=== PATIENT | female | born 1955 | race African-American/Black ===

== ENCOUNTER 2020-10-17 15:20 | Emergency (ER) | payer MEDICAID ==
[2020-10-17 15:23] VITALS: Ht 152.4 cm
[2020-10-17 18:56] VITALS: BP 103/62
== END 2020-10-17 18:56 | disposition home or self-care (01) ==
LOC: ED 15:20
DX: R05 Cough (principal); I10 Essential (primary) hypertension; R06.02 Shortness of breath; R07.89 Other chest pain; R06.2 Wheezing; Z88.6 Allergy status to analgesic agent; Z20.828 Contact with and (suspected) exposure to other viral communicable diseases
CPT/HCPCS: U0003

== ENCOUNTER 2021-02-04 10:41 | Emergency (ER) | payer MEDICAID ==
[~2021-02-04] VITALS: Ht 154.9 cm; Wt 78.5 kg
[2021-02-04 10:53] VITALS: Ht 154.9 cm; Wt 78.5 kg
[2021-02-04 12:04] LABS: CALCIUM 9.3 mg/dL (8.5-10.1); CARBON DIOXIDE 27.1 mmol/L (21-32); CHLORIDE SERUM 102 mmol/L (98-107); CREATININE SERUM 0.9 mg/dL (0.6-1.0); GFR1 > 60 mL/min; GLUCOSE SERUM 97 mg/dL (74-106); POTASSIUM SERUM 3.7 mmol/L (3.5-5.1); SODIUM SERUM 139 mmol/L (136-145)
[2021-02-04 12:10] LABS: ALBUMIN 3.7 g/dL (3.4-5.0); ALKALINE PHOSPHATASE 111 U/L (46-116); ALT/SGPT 24 U/L (14-59); AST/SGOT 16 U/L (15-37); BILIRUBIN TOTAL 0.48 mg/dL (0.20-1.00); LIPASE 153 IU/L (73-393); TOTAL PROTEIN, SERUM 8.1 g/dL (6.4-8.2)
[2021-02-04 13:01] LABS: BASOPHIL % 0.6 % (0.2-1.3); PLATELET COUNT 261 x10^3mcL (179-408)
[2021-02-04 13:02] LABS: RED CELL DISTRIBUTION WIDTH 14.6 % (12.3-17.7)
[2021-02-04 13:08] LABS: UA SPECIFIC GRAVITY <=1.005 (1.005-1.035); microscopic required? YES; urine erythrocyte NEGATIVE (NEGATIVE)
[2021-02-04] MEDS ORDERED: MAALOX ADVANCE355 ML PO (13:32)
[2021-02-04] MEDS ORDERED: TESSALON PERLE100 MG PO (13:32)
[2021-02-04] MEDS ORDERED: OMEPRAZOLE MAGN20 M1 PO (13:32)
[2021-02-04 14:01] VITALS: BP 120/68
== END 2021-02-04 14:01 | disposition home or self-care (01) ==
LOC: ED 10:41
PROVIDERS: Emergency Medicine
DX: K21.9 Gastro-esophageal reflux disease without esophagitis (principal); R05 Cough; I10 Essential (primary) hypertension